=== PATIENT | female | born 1975 | race Hispanic/Latino ===

== ENCOUNTER → 2017-08-11 | Outpatient (CLI) | payer OTHER ==
[2017-08-11 12:59] LABS: BASOPHILS % (AUTO) 0.8 % (0.0-5.0); EOSINOPHILS % (AUTO) 2.1 % (0.0-8.0); LYMPHOCYTES % (AUTO) 27.8 % (21.0-51.0); MEAN CORPUSCULAR HEMOGLOBIN 29.1 pg (27.0-33.0); MEAN CORPUSCULAR HGB CONC 33.5 g/dL (32.0-36.0); MEAN CORPUSCULAR VOLUME 86.6 fL (79-99); MONOCYTES % (AUTO) 6.4 % (3.0-13.0); NEUTROPHILS % (AUTO) 62.9 % (40.0-77.0); PLATELET COUNT (AUTO) 407 K/uL (130-400); RED BLOOD CELL COUNT(AUTO) 4.04 MIL/uL (4.00-5.50); RED CELL DISTRIBUTION WIDTH 14.2 % (11.0-15.5); WHITE BLOOD COUNT (AUTO) 8.4 K/uL (4.8-10.8)
[2017-08-11 13:04] LABS: APPEARANCE,URINE Clear (CLEAR); BILIRUBIN,URINE Negative (NEGATIVE); COLOR,URINE Dark Yellow (YELLOW); GLUCOSE, URINE (UA) Negative (NEGATIVE); KETONES,URINE Negative (NEGATIVE); LEUKOCYTE ESTERASE ,URINE Negative (NEGATIVE); NITRATE,URINE Negative (NEGATIVE); OCCULT BLOOD,URINE Moderate (NEGATIVE); PH,URINE 6.5 (5.0-8.0); PROTEIN,URINE Negative (NEGATIVE); UROBILINOGEN,URINE 0.2 mg/dL (0.2-1.0)
[2017-08-11 13:14] LABS: BACTERIA,URINE Rare /HPF (None Seen); SQUAMOUS EPITHELIAL CELL,UR Rare /LPF (0-2); WBC,URINE 0-1 /HPF (0-1)
[2017-08-11 13:20] LABS: ALBUMIN 4.2 g/dL (3.5-5.0); BILIRUBIN,TOTAL 0.3 mg/dL (0.2-1.0); CREATININE 0.8 mg/dL (0.5-1.5); THYROID STIMULATING HORMONE 2.05 uIU/mL (0.36-3.74); TOTAL PROTEIN, SERUM 7.9 g/dL (6.0-8.3)
[2017-08-11 14:02] LABS: ERYTHROCYTE SEDIMENTATION RATE 20 MM/HR (0-15)
== END ==
LOC: RAH 12:21
PROVIDERS: ATTEND Nurse Practitioner Family
DX: M26.609 Unspecified temporomandibular joint disorder, unspecified side (principal)
CPT/HCPCS: 36415; 70450; 70480; 80053; 80061; 81001; 82306; 84443; 85025; 85651

== ENCOUNTER 2020-05-03 01:18 | Emergency (ER) | payer OTHER ==
[2020-05-03] MEDS ORDERED: PANTOPRAZOLE 40 MG/VIAL ONE (01:39)
[2020-05-03] MEDS ORDERED: FAMOTIDINE/PF 20 MG/2 ML VIAL IV ONE (01:39)
[2020-05-03] MEDS ORDERED: ONDANSETRON HCL 4 MG/2 ML VIAL ONE (01:39)
[2020-05-03] MEDS ORDERED: SODIUM CHLORIDE 0.9% 1000ML 1,000 ML IV ONE (01:40)
[2020-05-03] MEDS ORDERED: METOCLOPRAMIDE 10 MG/2 ML VIAL ONE (01:44)
[2020-05-03 02:03] LABS: BASOPHILS % (AUTO) 0.8 % (0.0-5.0); EOSINOPHILS % (AUTO) 2.6 % (0.0-8.0); HEMATOCRIT 35.1 % (36-48); LYMPHOCYTES % (AUTO) 23.3 % (21.0-51.0); MEAN CORPUSCULAR HEMOGLOBIN 28.1 pg (27.0-33.0); MEAN CORPUSCULAR HGB CONC 33.3 g/dL (32.0-36.0); MEAN CORPUSCULAR VOLUME 84.4 fL (79-99); NEUTROPHILS % (AUTO) 63.9 % (40.0-77.0); PLATELET COUNT (AUTO) 353 K/uL (130-400); RED BLOOD CELL COUNT(AUTO) 4.16 MIL/uL (4.00-5.50); RED CELL DISTRIBUTION WIDTH 13.6 % (11.0-15.5); WHITE BLOOD COUNT (AUTO) 11.1 K/uL (4.8-10.8)
[2020-05-03 02:04] LABS: APPEARANCE,URINE Clear (CLEAR); BILIRUBIN,URINE Negative (NEGATIVE); COLOR,URINE Yellow (YELLOW); GLUCOSE, URINE (UA) Negative (NEGATIVE); KETONES,URINE Negative (NEGATIVE); LEUKOCYTE ESTERASE ,URINE Negative (NEGATIVE); NITRATE,URINE Negative (NEGATIVE); OCCULT BLOOD,URINE Negative (NEGATIVE); PROTEIN,URINE POS 2+ mg/dL (NEGATIVE)
[2020-05-03 02:15] LABS: CREATININE 0.8 mg/dL (0.5-1.5); POTASSIUM 3.8 mmol/L (3.5-5.1)
[2020-05-03 02:19] LABS: ALBUMIN 3.9 g/dL (3.5-5.0); BILIRUBIN,TOTAL 0.1 mg/dL (0.2-1.0); TOTAL PROTEIN, SERUM 8.1 g/dL (6.0-8.3)
== END 2020-05-03 03:59 | disposition home or self-care (01) ==
LOC: EDH 01:18
DX: K80.20 Calculus of gallbladder without cholecystitis without obstruction (principal); R11.10 Vomiting, unspecified; Z88.2 Allergy status to sulfonamides
CPT/HCPCS: 36415; 76705; 80053; 81003; 81025; 83690; 84484; 85025; 93005; 96374; 96375; 99285; C9113; J2405; J2765; J3490; J7030

== ENCOUNTER 2020-12-16 07:32 | Day surgery (SDC) | payer OTHER ==
[~2020-12-16] VITALS: Ht 162.6 cm; Wt 81.6 kg
[~2020-12-16 07:32] MED LIST: SODIUM CHLORIDE 0.9% 1000ML 1,000 ML IV ONE
[2020-12-16 08:31] VITALS: BP 144/78
[2020-12-16] MEDS ORDERED: PROPOFOL 10 MG/ML 20ML VIAL IV ONE (09:22)
[2020-12-16 09:37] VITALS: BP 127/70
[2020-12-16 09:42] VITALS: BP 106/67
[2020-12-16 09:47] VITALS: BP 121/80
[2020-12-16 09:52] VITALS: BP 125/82
[2020-12-16 09:58] VITALS: BP 125/79
== END 2020-12-16 10:05 | disposition home or self-care (01) ==
LOC: ENDO 07:32 → DAH 07:32 → ENDO 10:05
PROVIDERS: ATTEND Internal Medicine Gastroenterology
DX: R10.11 Right upper quadrant pain (principal); Z20.822 Contact with and (suspected) exposure to COVID-19; K80.20 Calculus of gallbladder without cholecystitis without obstruction; K29.70 Gastritis, unspecified, without bleeding; K22.8 Other specified diseases of esophagus; Z79.899 Other long term (current) drug therapy
CPT/HCPCS: 43239; 87635; A4215 ×2; A4221; A4222; A4223; A4606; A4620; A4657; A4663; C9803; J2704; J7030

== ENCOUNTER 2021-02-25 11:58 | Day surgery (SDC) | payer OTHER ==
[2021-02-23 09:27] LABS: BASOPHILS % (AUTO) 0.9 % (0.0-5.0); EOSINOPHILS % (AUTO) 1.6 % (0.0-8.0); LYMPHOCYTES % (AUTO) 22.8 % (21.0-51.0); MEAN CORPUSCULAR HEMOGLOBIN 25.2 pg (27.0-33.0); MEAN CORPUSCULAR HGB CONC 31.4 g/dL (32.0-36.0); MEAN CORPUSCULAR VOLUME 80.2 fL (79-99); MONOCYTES % (AUTO) 7.7 % (3.0-13.0); NEUTROPHILS % (AUTO) 66.8 % (40.0-77.0); PLATELET COUNT (AUTO) 371 K/uL (130-400); RED BLOOD CELL COUNT(AUTO) 4.49 MIL/uL (4.00-5.50); RED CELL DISTRIBUTION WIDTH 16.2 % (11.0-15.5); WHITE BLOOD COUNT (AUTO) 9.8 K/uL (4.8-10.8)
[2021-02-23 09:38] LABS: CREATININE 0.8 mg/dL (0.5-1.5); POTASSIUM 3.8 mmol/L (3.5-5.1)
[2021-02-24 10:27] VITALS: BP 119/77
[2021-02-25] VITALS (16 sets, daily range): BP systolic 114–148; BP diastolic 63–91
[~2021-02-25] VITALS: Ht 160 cm; Wt 84.7 kg
[~2021-02-25 11:58] MED LIST changes: +0.9%NACL 1000ML 1,000 ML IV SCH; +CEFAZOLIN SODIUM 1 GM VIAL IVP SCH; -SODIUM CHLORIDE 0.9% 1000ML 1,000 ML IV ONE
[2021-02-25] MEDS ORDERED: LACTATED RINGERS 1000ML 1,000 ML IV ONE (12:05)
[2021-02-25] MEDS ORDERED: CEFAZOLIN SODIUM 1 GM VIAL ONE (12:36)
[2021-02-25] MEDS ORDERED: BUPIVACAINE/PF 0.5% 30ML VIAL ONE (14:43)
[2021-02-25] MEDS ORDERED: ROCURONIUM 10MG/1ML SYR 10 MG/ML ML ONE (14:47)
[2021-02-25] MEDS ORDERED: ONDANSETRON 4MG INJ ONE (14:47)
[2021-02-25] MEDS ORDERED: LIDOCAINE PF 100MG/5ML (2%) SYRINGE 5ML ONE (14:47)
[2021-02-25] MEDS ORDERED: PROPOFOL 10 MG/ML 20ML VIAL IV ONE ×2 (14:47→15:45)
[2021-02-25] MEDS ORDERED: SUCCINYLCHOLINE CHLORIDE 20 MG/ML 10 ML VIAL ONE (14:47)
[2021-02-25] MEDS ORDERED: MIDAZOLAM HCL 1 MG/ML 2ML VIAL ONE (14:47)
[2021-02-25] MEDS ORDERED: FENTANYL CITRATE PF 50 MCG/1 ML 2ML VIAL ONE (14:48)
[2021-02-25] MEDS ORDERED: RACEPINEPHRINE HCL 2.25% 0.5 ML NEB SOLN ONE (16:13)
== END 2021-02-25 18:00 | disposition home or self-care (01) ==
LOC: DAH 11:58
PROVIDERS: ATTEND Student in an Organized Health Care Education/Training Program
DX: K80.00 Calculus of gallbladder with acute cholecystitis without obstruction (principal); Z20.822 Contact with and (suspected) exposure to COVID-19; E66.01 Morbid (severe) obesity due to excess calories; Z90.89 Acquired absence of other organs; Z88.2 Allergy status to sulfonamides; Z80.9 Family history of malignant neoplasm, unspecified; Z68.33 Body mass index [BMI] 33.0-33.9, adult
CPT/HCPCS: 36415; 47562; 80048; 85025; 87426; 94640; A4215; A4221; A4222; A4223; A4649 ×2; A4663; A6206; A6207; C1769 ×3; G0168; J0330; J0690; J2001; J2250; J2405; J2704 ×2; J3010; J3490; J7030; J7120

== ENCOUNTER → 2022-05-12 | Outpatient (CLI) | payer OTHER | END | disposition home or self-care (01) | LOC: RAH 08:16 | PROVIDERS: ATTEND Obstetrics & Gynecology | DX: Z12.31 Encounter for screening mammogram for malignant neoplasm of breast (principal); N95.1 Menopausal and female climacteric states; N91.2 Amenorrhea, unspecified; N85.2 Hypertrophy of uterus | CPT/HCPCS: 76856; 77067 ==

== ENCOUNTER → 2025-01-16 | Outpatient (CLI) | payer OTHER ==
[2025-01-16 09:05] LABS: IMMATURE GRANULOCYTE ABSOLUTE 0.01 K/uL (0-1); NUCLEATED RED BLOOD CELLS 0.0 % (0.0-0.19); PLATELET COUNT (AUTO) 388 K/uL (130-400); RED BLOOD CELL COUNT(AUTO) 4.90 MIL/uL (4.00-5.50); RED CELL DISTRIBUTION WIDTH 12.3 % (11.0-15.5); WHITE BLOOD COUNT (AUTO) 7.8 K/uL (4.8-10.8)
[2025-01-16 09:19] LABS: APPEARANCE,URINE CLEAR (CLEAR); GLUCOSE, URINE (UA) NEGATIVE (NEGATIVE); LEUKOCYTE ESTERASE ,URINE 75 Leu/uL (NEGATIVE); NITRATE,URINE NEGATIVE (NEGATIVE); OCCULT BLOOD,URINE NEGATIVE (NEGATIVE)
[2025-01-16 09:24] LABS: ADD UA MICROSCOPIC YES
[2025-01-16 09:27] LABS: SQUAMOUS EPITHELIAL CELL,UR RARE /HPF (0-2)
[2025-01-16 09:44] LABS: ASPARTATE AMINOTRANSFERASE 41.0 U/L (10-37); CREATININE 0.7 mg/dL (0.5-1.0); GLOMERULAR FILTR. RATE CALC 105.0 mL/min (>90); GLUCOSE,RANDOM 105.0 mg/dL (70-105); LDL DIRECT 112.0 mg/dL (0-99); SODIUM SERUM 141.0 mmol/L (136-145); TOTAL PROTEIN, SERUM 8.3 g/dL (6.0-8.3); UREA NITROGEN, BLOOD 9.0 mg/dL (7-18)
[2025-01-16 10:21] LABS: ERYTHROCYTE SEDIMENTATION RATE 16 MM/HR (0-30)
--- NOTE | 2025-01-21 16:39 | HMCIMG ---
EXAM: CR bilateral ankles, 4 View. CLINICAL HISTORY: BI LATERAL ANKLE PAIN COMPARISON: None provided. FINDINGS: BONES: No acute fracture or aggressive appearing osseous lesion. JOINTS: The joint spaces appear within normal limits. No dislocation. No radiographic evidence of a joint effusion. SOFT TISSUES: The soft tissues are unremarkable. IMPRESSION: No acute osseous abnormality. /[place]
== END | disposition home or self-care (01) ==
LOC: LAB 08:10
PROVIDERS: ATTEND Nurse Practitioner Family
DX: M25.571 Pain in right ankle and joints of right foot (principal); M25.572 Pain in left ankle and joints of left foot; E78.5 Hyperlipidemia, unspecified; E55.9 Vitamin D deficiency, unspecified; R53.82 Chronic fatigue, unspecified; M25.50 Pain in unspecified joint; Z13.1 Encounter for screening for diabetes mellitus; Z11.59 Encounter for screening for other viral diseases; Z00.01 Encounter for general adult medical examination with abnormal findings
CPT/HCPCS: 36415; 80053; 80061; 81001; 82306; 82607; 83036; 83735; 84443; 84550; 85025; 85651; 86038; 86140; 86215; 86235; 86431; 86803; 87086

== ENCOUNTER → 2025-01-30 | Outpatient (CLI) | payer OTHER ==
--- NOTE | 2025-01-31 08:05 | HMCIMG ---
EXAMINATION: ULTRASOUND OF THE ABDOMEN (LIMITED) WITH COLOR DOPPLER. CLINICAL HISTORY: Abnormal labs. COMPARISON: Ultrasound of the abdomen dated 05/03/2020. TECHNIQUE: Real-time grayscale ultrasound images of the abdomen. In addition, color Doppler is medically necessary to perform in order to evaluate vascularity and blood flow. FINDINGS: Liver: Bulky in caliber, the right hepatic lobe measures 18.0 cm in the craniocaudal dimension. There is increased echogenicity of the hepatic parenchyma. There is no focal hepatic abnormality or intrahepatic biliary ductal dilatation. There is normal spectral Doppler of the main portal vein. Gallbladder: Post cholecystectomy status. Common bile duct is normal in caliber, measuring 0.62 cm. Pancreas: Normal in caliber and echotexture. No calcification or dilated pancreatic duct. The right kidney is normal in caliber, the right kidney measures 10.9 x 4.7 x 4.9 cm in craniocaudal, AP, and transverse dimensions respectively. There is normal renal cortical thickness, and cortical echogenicity. There is no renal calculus or hydronephrosis. IMPRESSION: Hepatomegaly with hepatic steatosis. Post cholecystectomy status. /And[place]
== END | disposition home or self-care (01) ==
LOC: RAH 09:02
PROVIDERS: ATTEND Nurse Practitioner Family
DX: K76.0 Fatty (change of) liver, not elsewhere classified (principal); R79.89 Other specified abnormal findings of blood chemistry; Z90.49 Acquired absence of other specified parts of digestive tract; R16.0 Hepatomegaly, not elsewhere classified
CPT/HCPCS: 76705

== ENCOUNTER → 2025-03-12 | Outpatient (CLI) | payer OTHER ==
--- NOTE | 2025-03-13 07:54 | HMCIMG ---
BILATERAL BREAST ULTRASOUND: Finding: Real-time examination of the both breasts demonstrates heterogeneous. echotexture throughout both the breasts without evidence of focal solid or cystic masses. There is bilateral benign axillary lymph node on the right measures 2.3 x 0.8 cm. On the left there are 2 lymph nodes seen measuring 1.2 x 0.6 cm and the second lymph node measuring 2.3 x 0.6 cm. IMPRESSION: Dense breasts with no lesion seen. I would recommend annual mammography with tomography with bilateral breast sonogram FINAL ASSESSMENT: ACR: BI-RAD- 2. Benign: Also a negative assessment; finding(s) benign abnormalities. Management: Routine mammography screening. Likelihood of Cancer: Essentially 0% likelihood of malignancy.
== END | disposition home or self-care (01) ==
LOC: RAH 14:29
PROVIDERS: ATTEND Nurse Practitioner Family
DX: N60.11 Diffuse cystic mastopathy of right breast (principal); N60.12 Diffuse cystic mastopathy of left breast; R59.0 Localized enlarged lymph nodes

== ENCOUNTER → 2025-04-03 | Outpatient (CLI) | payer OTHER ==
[2025-04-03 08:59] LABS: % IRON SATURATION 18.3 % (22-44); IRON, SERUM 63.0 mcg/dL (50-170)
== END | disposition home or self-care (01) ==
LOC: LAB 08:10
PROVIDERS: ATTEND Internal Medicine Gastroenterology
DX: R94.5 Abnormal results of liver function studies (principal)
CPT/HCPCS: 36415; 82103; 82104; 82390; 82728; 82784; 83516; 83540; 83550; 86015; 86038; 86215; 86231; 86235; 86364; 86376; 87350